=== PATIENT | female | born 1935 | race Caucasian/White ===

== ENCOUNTER 2017-01-22 19:21 | Emergency (ER) | payer MEDICARE, OTHER ==
[~2017-01-22 19:21] MED LIST: ASTELIN137 MCG INH; AUGMENTIN 400-100 M1; FLONASE16 GM; NEXIUM PO
[2017-01-22] MEDS ORDERED: ASPIRIN81 MG PO (19:56)
[2017-01-22] MEDS ORDERED: NEXIUM PO (19:57)
[2017-01-22] MEDS ORDERED: ZYRTEC10 M2 PO (19:57)
[2017-01-22] MEDS ORDERED: METFORMIN HCL500 M1 PO (19:58)
[2017-01-22] MEDS ORDERED: LISINOPRIL PO (19:58)
== END 2017-01-22 21:48 | disposition home or self-care (01) ==
LOC: SED 19:21
DX: M79.651 Pain in right thigh (principal); E11.9 Type 2 diabetes mellitus without complications; I10 Essential (primary) hypertension; Z90.710 Acquired absence of both cervix and uterus; Z87.891 Personal history of nicotine dependence; Z88.2 Allergy status to sulfonamides; Z79.82 Long term (current) use of aspirin; Z79.899 Other long term (current) drug therapy
CPT/HCPCS: 96372; 99283; J1650

== ENCOUNTER → 2017-01-23 | Outpatient (CLI) | payer MEDICARE, OTHER ==
[~2017-01-23] MED LIST changes: +ASPIRIN81 MG PO; +LISINOPRIL PO; +METFORMIN HCL500 M1 PO; +ZYRTEC10 M2 PO
--- NOTE | ~2017-01-23 | US85 ---
[facility] A Service [facility] RADIOLOGY TEXT RESULTS PATIENT: SOLIS CASILLAS LOCATION: SNIV : 33 UNIT #: [id number] AGE: [address]: JEREMIAH PATINO SEX: F ORDER DR: [id number] [place] [id number] O MR#: [id number] Acc #: [id number] NAME: SOLIS CASILLAS : 1935 SEX: F STUDY DATE/TIME: 01/23/2017 10:41 UNIT: SNIV ROOM: STUDY DESCRIPTION: [facility] Attending Physician: Jeremiah Patino Aprn Referring Physician: Jeremiah Patino Aprn Ordering Physician: Jeremiah Patino Aprn Primary Care Physician: Jose Smart M.D. MEDICAL IMAGING REPORT This report is preliminary unless electronic signature is present. EXAM Right lower extremity venous duplex 01/23/2017 HISTORY Right lower extremity pain for 2 weeks with right calf redness laterally. Evaluate for deep vein thrombosis. Previous history of lower extremity DVT and pulmonary embolus. TECHNIQUE Venous ultrasound examination of the right lower extremity was performed using grayscale, spectral Doppler and color flow Doppler imaging. FINDINGS The examination is negative. There is no evidence of right lower extremity deep venous thrombus from the groin to the lower calf. Visualized greater saphenous vein is also patent. IMPRESSION Negative examination. No evidence of right lower extremity deep venous thrombosis. Dictated by... Carter Arnold M.D. THIS IS AN ELECTRONICALLY VERIFIED REPORT Carter Arnold M.D. at 01/24/2017 2:10 PM SELWYN/bita TD: 01/23/2017 16:22 JOB #: [id number] MEDICAL IMAGING REPORT [facility] A Service [facility] RADIOLOGY TEXT RESULTS PATIENT: SOLIS CASILLAS LOCATION: SNIV : 33 UNIT #: [id number] AGE: [address]: JEREMIAH PATINO SEX: F ORDER DR: Page 1 of 1
== END | disposition home or self-care (01) ==
LOC: SNIV 10:01
DX: M79.604 Pain in right leg (principal)
CPT/HCPCS: 93971